=== PATIENT | male | born 1960 | race Caucasian/White ===

== ENCOUNTER → 2019-05-13 | Day surgery (SDC) | payer BC ==
[2019-05-11 11:53] LABS: BASOPHILS # (AUTO) 0.1 (0.0-0.1); BASOPHILS % 0.6 % (0.0-1.0); EOSINOPHILS # (AUTO) 0.4 (0.0-0.4); EOSINOPHILS % 5.3 % (0.0-6.0); HEMATOCRIT 49.2 % (38.2-49.6); HEMOGLOBIN 17.6 g/dL (14.0-18.0); LYMPHOCYTES # (AUTO) 1.7 (1.0-3.2); LYMPHOCYTES % 22.1 % (18.0-39.1); MEAN CORPUSCULAR HEMOGLOBIN 32.8 pg (28-32); MEAN CORPUSCULAR HGB CONC 35.8 g/dL (31-35); MEAN CORPUSCULAR VOLUME 91.8 fL (81-99); MONOCYTES # (AUTO) 0.8 (0.2-0.8); MONOCYTES % 9.8 % (4.4-11.3); NEUTROPHILS # (AUTO) 4.8 (2.1-6.9); NEUTROPHILS % 61.3 % (38.7-80.0); PLATELET COUNT 269 x10e3/uL (140-360); RED BLOOD COUNT 5.36 x10e6/uL (4.3-5.7); RED CELL DISTRIBUTION WIDTH 13.2 % (11.7-14.4)
[2019-05-11 12:14] LABS: INR 0.92; PROTHROMBIN TIME 12.9 seconds (11.9-14.5)
[2019-05-11 12:24] LABS: ALANINE AMINOTRANSFERASE 39 IU/L (0-55); ALBUMIN 4.1 g/dL (3.5-5.0); ALBUMIN/GLOBULIN RATIO 1.4 (0.8-2.0); ALKALINE PHOSPHATASE 73 IU/L (40-150); ANION GAP 13.6 mmol/L (8-16); BLOOD UREA NITROGEN 9 mg/dL (7-26); BUN/CREATININE RATIO 10 (6-25); CALCIUM 9.9 mg/dL (8.4-10.2); CARBON DIOXIDE 29 mmol/L (22-29); CHLORIDE 104 mmol/L (98-107); CHOL/HDL RATIO 3.6 (3.9-4.7); CHOLESTEROL 125 MD/DL (0-199); CREATININE, SERUM 0.88 mg/dL (0.72-1.25); EST GLOMERULAR FILTRATION RATE > 60 ML/MIN (60-); GLUCOSE 99 mg/dL (74-118); HDL CHOLESTEROL 35 MG/DL (40-60); LDL CHOLESTEROL 55 MG/DL (60-130); POTASSIUM 3.6 mmol/L (3.5-5.1); SODIUM 143 mmol/L (136-145); TRIGLYCERIDES 175 MG/DL (0-149)
[2019-05-13] VITALS (8 sets, daily range): BP systolic 130–158; BP diastolic 70–84
[~2019-05-13] VITALS: Ht 172.7 cm; Wt 97.5 kg
[~2019-05-13] MED LIST: AMLODIPINE BESY10 MG PO; ASPIR 8181 MG PO; ASPIRIN 325 MG TAB ONE; ATORVASTATIN CA20 MG PO; CILOSTAZOL100 MG PO; CLOPIDOGREL BISULFATE 75 MG TAB ONE; FENTANYL CITRATE/PF 100MCG/2 ML INJ ONE; HEPARIN SOD (PORCINE) 1000 UNIT/ML 30ML ONE; HEPARIN SOD/SOD CHLORIDE 2,000 ML ONE; IOPAMIDOL 300MG/ML 100 ML INFUS..BTL IV ONE; LIDOCAINE HCL 2% LOCAL 20 ML VIAL ONE; LOSARTAN-HCTZ1 EAC1 PO; METOPROLOL SUCC50 MG PO; MIDAZOLAM HCL 2 MG/2 ML VIAL ONE; NITROGLYCERIN/D5W 200 MCG/ML 0 ML ONE; SODIUM CHLORIDE 0.9% 1000ML 0 ML ONE; SODIUM CHLORIDE 0.9% 1000ML 1,000 ML ONE; VERAPAMIL HCL 2.5 MG/ML 2 ML VIAL ONE
--- NOTE | 2019-05-13 12:30 | NUR ---
1230 Received report from Ej ROBERTS Peripheral angio Dr Meléndez Rt. Perclose for no fix with bilateral disease. To f/o 4-6wks Back to baseline orientation Resp shallow and regular 98% sat Abdomen soft and non tender DEnies necssity to defecate or urinate. left arm iv site w/o infiltration infusing at 100cc dial a flow Rt Vascade site intake w/o s/s hematoma or oozing down [id number] and dc Denies CP or SOB NO gross issues pain pallor pressure or dysrhythmia. ds/rn
--- NOTE | 2019-05-13 15:30 | NUR ---
1530 Down time completed Rt vascade site w/o hematoma or oozing. NO gross issues pain, pallor,or dysrhythmia.PPx4 Pt/Dp with Doppler pt will be returning 4-6wks for f/o fix per Dr Meléndez service. DC plans signed by and POC understood knows importance f/o. Has copies of dc papers.Assist to bathroom and dressed Void qs Tolerating po intake. To car per Rn escort per w/c with driver education instructor to home. Denies CP or SOB iv removed no s/s infiltration. Coban 2x2 dressing to site. ds/rn
--- NOTE | 2019-05-13 20:10 | Operative Report ---
DATE OF PROCEDURE: 05/13/2019 SURGEON: Jamey Ware MD PROCEDURE INDICATION: Peripheral arterial disease with life-limiting claudication affecting both lower extremities. PROCEDURES PERFORMED: 1. Abdominal aortogram. 2. Selective lower extremity angiography, bilateral to each of lower extremities. 3. Third-order catheter placement from right femoral artery to left femoral artery. 4. Attempted left SFA CHEMICAL RESEARCH ENGINEER, aborted. 5. Catheter placement in the aorta. 6. A 6-Gambian Angio-Seal closure to the right femoral artery. PROCEDURE COMPLICATIONS: None. ESTIMATED BLOOD LOSS: Less than 15 mL. PROCEDURE SUMMARY: After consent was obtained, the patient was prepped and draped in a sterile fashion. The right femoral site was locally infiltrated with 2% lidocaine and access was obtained with micropuncture. A 6-Gambian sheath was placed and an Omni Flush catheter was positioned in the distal descending abdominal aorta for abdominal aortogram. The catheter was then advanced over wire. The left femoral artery positioned for additional angiography with screening angiography to left lower extremity. Anterior delineation of anatomy, additional catheter advanced into the left femoral artery was performed with heparinization with an ACT over 250. An additional selective angiography of the left SFA was then performed. I further delineated the proximal cap of a chronically occluded WIRE BOUND BOX MACHINE HELPER, 100% SFA long area of stenosis. It was decided to proceed with intervention to the left SFA and this was attempted with a Seeker catheter along with Advantage wire, Roadrunner wire, and Astato 30 gr, 0.018 was successful in crossing subintimally up until the distal cap, however, distal intraluminal reentry wasnt achieved. Given position of wires in the subintimal space at the popliteal artery level it was decided to avoid further attempted subintimal approach at this level with plans for possible staged attempt via the pedal retrograde approach at a later date. Catheter was then retrieved and sheath positioned in the right external iliac artery for additional selective angiography of the right lower extremity delineating its anatomy. Angio-Seal closure was then successful to the right femoral artery. These were the following findings: Renal arteries are patent. Infrarenal aorta and iliac vessels have luminal irregularities. The common femoral arteries, profunda femoris, both have luminal irregularities. Bilateral and the right SFA has an area of 100% stenosis followed by an area of 70% stenosis. The right popliteal artery is patent. There is patent anterior tibial. TP trunk and peroneal artery with an occluded 100% posterior tibial artery to the right lower extremity. The left femoral artery has a long segment of chronic total occlusion of 100% with blunt proximal cap with adjacent well-developed collaterals arising at this level. This cap however was successfully crossed. However, distal cap re-entry was not achieved and therefore CHEMICAL RESEARCH ENGINEER of the left SFA was aborted as previously described. The left popliteal artery is patent. The left anterior tibial artery is patent. The TP trunk is patent. The peroneal artery is patent less than 30% stenosis throughout this vessels. The left posterior tibial artery seemed occluded 100%. 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 RECOMMENDATIONS: 1. Staged antegrade right SFA revascularization is advised as well as the pedal AT retrograde left SFA revascularization, which can be performed at a later date. 2. Aspirin. 3. Bed rest. 4. IV fluids. MD ElizabethV/MODL /[id number] MTDD
--- NOTE | 2019-05-18 03:18 | Operative Report ---
DATE OF PROCEDURE: 05/13/2019 SURGEON: Jamey Ware MD PROCEDURE INDICATION: Peripheral arterial disease suspected by Doppler with life-limiting claudication affecting both lower extremities. PROCEDURE PERFORMED: 1. Abdominal aortogram. 2. Selective lower extremity angiography, bilateral. 3. Catheter placement in the aorta. 4. Third-order catheter placement from right common femoral artery, left femoral artery. 5. Left SFA SENIOR SUPPORT ENGINEER, attempted and aborted. 6. Right common femoral artery 6-Slovak Angio-Seal closure. PROCEDURE COMPLICATIONS: None. ESTIMATED BLOOD LOSS: Less than 15 mL. PROCEDURE SUMMARY: After consent was obtained, the patient was prepped and draped in a sterile fashion. The right femoral site was locally infiltrated with 2% lidocaine. An access was obtained with micropuncture. A 6-Slovak sheath was placed. An Omni flush catheter was positioned in the distal descending abdominal aorta DICTATION ENDS HERE. MD TOM Lopez/MYRONL /[id number]
== END | disposition home or self-care (01) ==
LOC: CATH LAB 08:34
PROVIDERS: ATTEND Internal Medicine Cardiovascular Disease
DX: I70.213 Atherosclerosis of native arteries of extremities with intermittent claudication, bilateral legs (principal); I70.92 Chronic total occlusion of artery of the extremities; I10 Essential (primary) hypertension; E78.5 Hyperlipidemia, unspecified; F17.200 Nicotine dependence, unspecified, uncomplicated; Z88.8 Allergy status to other drugs, medicaments and biological substances; Z01.812 Encounter for preprocedural laboratory examination; Z79.82 Long term (current) use of aspirin
CPT/HCPCS: 36415; 37224; 75625; 80053; 80061; 83036; 85025; 85610; 85730; C1769 ×3; C1887 ×2; J1644; J2001; J2250; J7030; Q9967; 36247; 75716; C1760; J3010

== ENCOUNTER → 2019-06-17 | Day surgery (SDC) | payer SELFPAY ==
[2019-06-15 11:29] LABS: BASOPHILS # (AUTO) 0.1 (0.0-0.1); EOSINOPHILS # (AUTO) 0.5 (0.0-0.4); HEMATOCRIT 50.2 % (38.2-49.6); HEMOGLOBIN 17.6 g/dL (14.0-18.0); LYMPHOCYTES # (AUTO) 1.9 (1.0-3.2); LYMPHOCYTES % 26.4 % (18.0-39.1); MEAN CORPUSCULAR HEMOGLOBIN 32.8 pg (28-32); MEAN CORPUSCULAR HGB CONC 35.1 g/dL (31-35); MEAN CORPUSCULAR VOLUME 93.7 fL (81-99); MONOCYTES # (AUTO) 0.8 (0.2-0.8); MONOCYTES % 11.4 % (4.4-11.3); NEUTROPHILS # (AUTO) 3.8 (2.1-6.9); NEUTROPHILS % 53.6 % (38.7-80.0); PLATELET COUNT 245 x10e3/uL (140-360); RED BLOOD COUNT 5.36 x10e6/uL (4.3-5.7); RED CELL DISTRIBUTION WIDTH 13.3 % (11.7-14.4)
[2019-06-15 11:46] LABS: ANION GAP 15.7 mmol/L (8-16); BLOOD UREA NITROGEN 8 mg/dL (7-26); BUN/CREATININE RATIO 9 (6-25); CALCIUM 9.9 mg/dL (8.4-10.2); CARBON DIOXIDE 27 mmol/L (22-29); CHLORIDE 102 mmol/L (98-107); CREATININE, SERUM 0.86 mg/dL (0.72-1.25); EST GLOMERULAR FILTRATION RATE > 60 ML/MIN (60-); GLUCOSE 96 mg/dL (74-118); POTASSIUM 3.7 mmol/L (3.5-5.1); SODIUM 141 mmol/L (136-145)
[2019-06-17] VITALS (8 sets, daily range): BP systolic 122–153; BP diastolic 53–87
[~2019-06-17] VITALS: Ht 172.7 cm; Wt 95.3 kg
[~2019-06-17] MED LIST changes: +CLOPIDOGREL BISULFATE 300 MG TAB-DO NOT STOCK ONE; +HYDRALAZINE HCL 20 MG/ML VIAL ONE; -NITROGLYCERIN/D5W 200 MCG/ML 0 ML ONE; +NITROGLYCERIN/D5W 200 MCG/ML 250 ML ONE; -SODIUM CHLORIDE 0.9% 1000ML 0 ML ONE
--- NOTE | 2019-06-17 09:30 | NUR ---
0930am in Rm#10, prepped for procedure. Peripheral angio fix Dr Meléndez. Alert oriented and appropriate, PERRLA, respirations even and unlabored to room air. Pulses x4 extremities equal and faint. Pedal pulses PT/DP dopplerx4 Cap fill brisk < 3 sec. bilateral feet semi cool and pale. Skin warm and dry integrity appears intact in general. IV lt ac #20 x1 stick.Started and presents healthy w/o s/s of infiltration or complaint. Report to Brayan ROBERTS will start pre meds and hydration in laborer/key man. . Abdomen soft and supple. pt offered toileting, denies need to urinate or defecate. Personal affects with patient. Family at bedside. Pt and family()[phone] verbalizes understanding of POC. Bed low and locked, side rails up x2 and call light at side. ds/rn
--- NOTE | 2019-06-17 09:58 | NUR ---
0958 received orders ,pt wheel and introduced to laborer [place] team handoff completed ds/rn
--- NOTE | 2019-06-17 11:40 | NUR ---
Continuity of care review of procedural findings and medications given. Patient awake , alert and oriented. maintains airway and room air saturations of 96-98%. No gross issues of pressure, pain, pallor or dysrhythmia. IV site patent with NS 0.9% at 200ml/hr per gravity. patient hemodynamically stable with hemostasis Left groin dressing CDI w/o s/s of bleeding. patient transferred to [facility] max assist w/o incident. transported to [facility] holding for recovery. Bed left low and locked, siderails up x2, call light at side, and placed on bedside [place] [facility] [place] Right SFA atherectomy and stent Sheath puller: Dr Meléndez Angioseal Evolution left groin Meds Given Intra-Procedure Sedatives Versed - 2 mg Fentanyl - 75 mcg Anticoagulants Heparin - 25296 Units Fluids Input - 400ml Output - dtv Contrast Isovue 300 - 65ml Other Meds Plavix 600mg Aspirin 325mg Hydralazine 10mg IV
--- NOTE | 2019-06-17 12:00 | NUR ---
1200 Bedside report received from ARMANDO Pagan. Peripheral angio per Dr Rodriguez with stent placement Flat till 220pm Dc home 230pm Rt Angioseal site w/o hematoma or oozinging.Alert oriented and appropriate, PERRLA, respirations even and unlabored to room air. Pulses x4 extremities equal and strong. Pedal pulses PT/DP [id number] strong and marked. Cap fill brisk < 3 sec. Skin warm and dry integrity appears . IV 20g to left ac Iv infusing via controller at 200cchr. Site presents healthy w/o s/s of infiltration or complaint. Abdomen soft and supple. pt offered toileting, denies need to urinate or defecate. No personal affects with patient. Family at bedside and notified ride to arrive at 1430pm. Pt and family verbalizes understanding of POC. Currently w/o complaint of pain or need. Assist with po intake. Tolerating well back to baseline orientation.ds/rn
--- NOTE | 2019-06-17 12:14 | NUR ---
bedside report handoff to Nuria Parish RN. Alert oriented and appropriate, PERRLA, respirations even and unlabored to room air. Pulses x4 extremities equal and strong. Pedal pulses PT/DP present. Cap fill brisk < 3 sec. No gross changes, or need. VS wnl. Transfer [place]. [place] [facility] [place]
--- NOTE | 2019-06-17 13:41 | NUR ---
134 DC planning completed with paper signed Copy with family and void qs ds/rn
--- NOTE | 2019-06-17 14:25 | Operative Report ---
DATE OF PROCEDURE: 06/17/2019 SURGEON: Jamey Ware MD PERIPHERAL ANGIOGRAPHY AND INTERVENTION PROCEDURE INDICATION: Severe life-limiting claudication and known obstructive peripheral arterial disease. PROCEDURES PERFORMED: 1. Abdominal aortogram. 2. Selective lower extremity angiography, unilateral to right lower extremity. 3. Third-order catheter placement from left femoral artery to right femoral artery. 4. Additional third-order catheter placement from left femoral artery to right popliteal artery for additional digital subtraction angiography of initially poorly visualized [id number] vessel arteries. 5. Right SFA CSI atherectomy with a 1.5 solid neida at 60,000, 90,000, and 120,000 rpm passes. 6. Right SFA GROVE SUPERINTENDENT with an UltraVerse 6.0 x 100 mm balloon and a stent for residual dissection of the right SFA with LifeStent 7.0 x 80 self-expanding stent with excellent final angiographic results. 7. Left common femoral artery 6-Gibraltarian Angio-Seal closure. PROCEDURE COMPLICATIONS: None. PROCEDURE SUMMARY: After consent was obtained, the patient was prepped and draped in a sterile fashion. The left femoral site was locally infiltrated with 2% lidocaine and access was obtained with micropuncture kit. A 6-Gibraltarian sheath was placed. An Omni Flush catheter was positioned in the distal descending abdominal aorta for selective angiography. Additional catheter advancement was performed to the right femoral artery and then to the right popliteal artery for further angiographic assessment of right lower extremity. Predilatation of SFA chronic total occlusion was performed after initial crossing with wire and wire exchanged for a ViperWire. Using a Diamondback 1.5 solid crown atherectomy was performed with several passes of 60,000, 90,000, and 100,000 rpm. This was followed by UltraVerse 6.0 x 100 balloon angioplasty to 6 atmospheres. Finally due to focal area of complex dissection, where the previous MEDICAL ADVISOR was observed, it was decided to proceed with stenting with a 7.0 x 80 LifeStent self expanding, deployed across the target lesion, post dilate with 6.0 x 100 balloon. Final angiography reveals excellent results, FATIMAH-3 flow, no residual stenosis (0%), no flow-limiting dissections or perforations and 3-vessel flow to the right foot. For this procedure, heparin to maintain an ACT over 250. Aspirin and Plavix loading were provided and 600 mg of Plavix, 325 of aspirin. FINDINGS: 1. Renal arteries are patent. Infrarenal abdominal aorta and iliac vessels have less than 30% areas of stenosis. The left lower extremity was not assessed on this angiogram. Please refer to previous assessment on prior angiography. 2. The right common femoral artery is patent. The right profunda femoris is patent. The right SFA has 100% chronic total occlusion segment, which was a target lesion with final 0% residual stenosis. Post intervention, this 3-vessel runoff to right lower extremity with digital plantar arteries noted to be small in caliber and diffusely diseased with increased density consistent with some degree of outflow disease. CONCLUSION: Right SFA CSI atherectomy and stent. Recommend aspirin and Plavix. Staged left SFA-MEDICAL ADVISOR GROVE SUPERINTENDENT via retrograde pedal flow approach for the left anterior tibial or alternatively left popliteal approach, however, the popliteal artery segment is somewhat short, which raises some concern for the access and sheath placement. MD TOM Lopez/CIARAN /[id number]
--- NOTE | 2019-06-17 14:30 | NUR ---
1430 Pt meets DC criteria.left vascade site assessed for s/s of complication and presecence of hematoma. XXXXX warm, dry, no discolor, and pulses present. IV removed from left ac Distal tip appears intact. VS WNL. Pt denies pain, sob, or need at this time. Family here. Reviewed of discharge paperwork and follow up instructions. verbalized understanding. Pt to wheelchair and transported to front of hospital. Transferred to private vehicle under own strength w/o incident with DC paperwork in hand. ds/rn
== END | disposition home or self-care (01) ==
LOC: CATH LAB 08:16
PROVIDERS: ATTEND Internal Medicine Cardiovascular Disease
DX: I70.211 Atherosclerosis of native arteries of extremities with intermittent claudication, right leg (principal); E78.5 Hyperlipidemia, unspecified; I10 Essential (primary) hypertension; Z72.0 Tobacco use; E66.01 Morbid (severe) obesity due to excess calories; Z68.31 Body mass index [BMI] 31.0-31.9, adult; Z82.49 Family history of ischemic heart disease and other diseases of the circulatory system; Z01.812 Encounter for preprocedural laboratory examination
CPT/HCPCS: 36415; 37227; 75625; 80048; 85025; C1724; C1725; C1760; C1769 ×4; C1876; C1887 ×3; J0360; J1644; J2001; J2250; J3010; J7030; Q9967

== ENCOUNTER 2023-03-27 00:27 | Emergency (ER) | payer BC, OTHER ==
[~2023-03-27] VITALS: Ht 172.7 cm; Wt 95.3 kg
[~2023-03-27 00:27] MED LIST changes: -ASPIRIN 325 MG TAB ONE; -CLOPIDOGREL BISULFATE 300 MG TAB-DO NOT STOCK ONE; -CLOPIDOGREL BISULFATE 75 MG TAB ONE; -FENTANYL CITRATE/PF 100MCG/2 ML INJ ONE; -HEPARIN SOD (PORCINE) 1000 UNIT/ML 30ML ONE; -HEPARIN SOD/SOD CHLORIDE 2,000 ML ONE; -HYDRALAZINE HCL 20 MG/ML VIAL ONE; -IOPAMIDOL 300MG/ML 100 ML INFUS..BTL IV ONE; -LIDOCAINE HCL 2% LOCAL 20 ML VIAL ONE; -MIDAZOLAM HCL 2 MG/2 ML VIAL ONE; -NITROGLYCERIN/D5W 200 MCG/ML 250 ML ONE; -SODIUM CHLORIDE 0.9% 1000ML 1,000 ML ONE; -VERAPAMIL HCL 2.5 MG/ML 2 ML VIAL ONE
[2023-03-27] MEDS ORDERED: LABETALOL HCL 5 MG/ML 20ML VIAL IV STA (00:50)
[2023-03-27] MEDS ORDERED: CLONIDINE HCL 0.1 MG TAB ONE (01:30)
[2023-03-27] MEDS ORDERED: CLONIDINE HCL 0.1 MG TAB PO ONE (01:45)
[2023-03-27 02:03] VITALS: O2SAT 96
== END 2023-03-27 02:07 | disposition home or self-care (01) ==
LOC: FSED 00:46
DX: R20.0 Anesthesia of skin (principal); I63.9 Cerebral infarction, unspecified; I16.1 Hypertensive emergency; I10 Essential (primary) hypertension; E78.5 Hyperlipidemia, unspecified; M16.11 Unilateral primary osteoarthritis, right hip; R94.31 Abnormal electrocardiogram [ECG] [EKG]; F17.210 Nicotine dependence, cigarettes, uncomplicated; Z20.822 Contact with and (suspected) exposure to COVID-19
CPT/HCPCS: 70450; 80053; 82553; 84484; 85025; 93005; 99284; U0002

== ENCOUNTER → 2023-03-29 | Outpatient (CLI) | payer OTHER | LOC: CT 12:00 | PROVIDERS: ATTEND Internal Medicine | DX: I63.322 Cerebral infarction due to thrombosis of left anterior cerebral artery (principal); M16.11 Unilateral primary osteoarthritis, right hip; K21.9 Gastro-esophageal reflux disease without esophagitis | CPT/HCPCS: 70551 ==